=== PATIENT | female | born 1990 | race Caucasian/White ===

== ENCOUNTER 2024-03-22 15:53 | Emergency (ER) | payer OTHER, SELFPAY ==
[2024-03-22 16:22] VITALS: BP 105/69; PULSE 85; RESP 15; TEMP 36.7; O2SAT 99; BMI 19.9
--- NOTE | 2024-03-22 16:28 | DI.RAD.S_ITS ---
PROCEDURE: XR ANKLE RT MIN 3V INDICATIONS: fall.injury TECHNIQUE: 3 views of the ankle were acquired. COMPARISON: None. FINDINGS: Bones: No fractures or dislocations. Ankle mortise is normally aligned. No suspicious bony lesions. Soft tissues: Mild lateral ankle soft tissue swelling is seen. No tibiotalar joint effusion. Achilles tendon appears normal. IMPRESSION: Lateral ankle soft tissue swelling. No acute ankle fracture or dislocation. Ankle mortise is congruent. Dictated by: Charles Marcus M.D. on 03/22/2024 at 17:15 Approved by: Charles Marcus M.D. on 03/22/2024 at 17:16
[2024-03-22 17:51] VITALS: PULSE 85
--- NOTE | 2024-03-22 17:58 | ED_ITS ---
HPI - Extremity Injury (Lower) <Oly Biswas PA-C - Last Filed: 03/22/24 18:28> General Chief Complaint: Extremity Injury, Lower Stated Complaint: Fall, ankle px Time Seen by Provider: 03/22/24 17:49 Source: patient Mode of arrival: Family Vehicle History of Present Illness HPI Narrative: 34-year-old female presents today with right ankle pain, she was working on her boat ?walked a narrow wobbly plank and rolled her ankle she describes an inversion injury. She is complaining of pain and swelling to the lateral right ankle. She is denying any numbness or tingling or weakness. She has no prior ankle injuries that she is aware of no treatment tried prior to arrival although we did ice her in triage. All other systems are reviewed and are negative. 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 Related Data Allergies Allergy/AdvReac Type Severity Reaction Status Date / Time No Known Drug Allergies Allergy Verified 03/22/24 16:28 Review of Systems <Oly Biswas PA-C - Last Filed: 03/22/24 18:28> Review of Systems Narrative: All other systems reviewed and are negative. Patient History <Oly Biswas PA-C - Last Filed: 03/22/24 18:28> Social History Smoking Status: Never smoker Smoking Status: Never smoker alcohol intake frequency: 0-2 drinks per day Substance Use Type: does not use Exam <Oly Biswas PA-C - Last Filed: 03/22/24 18:28> Initial Vital Signs Initial Vital Signs: Vital Signs Temperature 98.0 F 03/22/24 16:22 Pulse Rate 85 03/22/24 16:22 Respiratory Rate 15 03/22/24 16:22 Blood Pressure 105/69 03/22/24 16:22 Pulse Oximetry 99 03/22/24 16:22 Oxygen Delivery Method Room Air 03/22/24 16:22 Const Other: Smiling seated, no distress, athletic appearing. Skin Other: Skin is intact, there is purple discoloration and soft tissue swelling over the lateral malleolus on the right side. Normal turgor, temperature, color otherwise. Extrem Other: Lateral malleolus swelling on the right ankle, purple discoloration inferiorly. Skin is intact. Active range of motion she is able to demonstrate flexion and extension against resistance without pain, inversion causes the most pain but she is without guarding. Eversion not performed. Anterior drawer is negative for any laxity. She has good distal neurovascular including DP and PT pulses normal capillary refill, sensory is grossly intact to all of her distal phalanges. Weightbear she does walk gingerly but is safe and is able to apply full weightbear. She has no superior discomfort in the upper lower leg or knee joint. No other injuries identified. No focal neurologic findings. <Holley Dixon MD - Last Filed: 04/13/24 04:18> Initial Vital Signs Initial Vital Signs: Vital Signs Temperature 98.0 F 03/22/24 16:22 Pulse Rate 85 03/22/24 16:22 Respiratory Rate 15 03/22/24 16:22 Blood Pressure 105/69 03/22/24 16:22 Pulse Oximetry 99 03/22/24 16:22 Oxygen Delivery Method Room Air 03/22/24 16:22 Course <Oly Biswas PA-C - Last Filed: 03/22/24 18:28> Course Course Narrative: Negative x-rays, a 4 in Rodolfo wrap was applied and she feels comfortable. Orders Ordered: ED Orders 03/22/24 16:28 XR ankle RT min 3V Stat Vital Signs Vital signs: Vital Signs - 8 hr 03/22/24 16:22 03/22/24 17:51 Temperature 98.0 F Pulse Rate 85 Pulse Rate [Right Dorsalis Pedis] 85 Respiratory Rate 15 Blood Pressure 105/69 Pulse Oximetry 99 Oxygen Delivery Method Room Air <Holley Dixon MD - Last Filed: 04/13/24 04:18> Orders Ordered: ED Orders 03/22/24 16:28 XR ankle RT min 3V Stat Vital Signs Vital signs: Vital Signs - 8 hr 03/22/24 16:22 03/22/24 17:51 Temperature 98.0 F Pulse Rate 85 Pulse Rate [Right Dorsalis Pedis] 85 Respiratory Rate 15 Blood Pressure 105/69 Pulse Oximetry 99 Oxygen Delivery Method Room Air MDM - Extremity Injury (Lower) <Oly Biswas PA-C - Last Filed: 08/28/24 18:28> Imaging Data Extremity x-ray #1: My Impression: No fracture or dislocation. Lateral ankle soft tissue swelling. Radiologist's Impression: PROCEDURE: XR ANKLE RT MIN 3V INDICATIONS: fall.injury TECHNIQUE: 3 views of the ankle were acquired. COMPARISON: None. FINDINGS: Bones: No fractures or dislocations. Ankle mortise is normally aligned. No suspicious bony lesions. Soft tissues: Mild lateral ankle soft tissue swelling is seen. No tibiotalar joint effusion. Achilles tendon appears normal. IMPRESSION: Lateral ankle soft tissue swelling. No acute ankle fracture or dislocation. Ankle mortise is congruent. Dictated by: Charles Marcus M.D. on 03/22/2024 at 17:15 Approved by: Charles Marcus M.D. on 03/22/2024 at 17:16 [facility] Narrative Medical decision making narrative: Most likely ligamentous sprain, differential includes a partial tear. There is no laxity on examination but significant swelling on the lateral malleolus with purple discoloration. No fracture on radiographs, she is able to weightbear gingerly she is road tested and is safe. She declined any splinting such as an Aircast or walking boot. We discussed red flag warning signs, the nature of ankle sprains and that she should avoid re-injury within the next 6 months, she will return to work as she requested to do so, but we did discuss the risks benefit as well as the potential for re-injury or having a secondary injury. She will wear a high ankle mid lower leg lace-up boot for protection. She understands the risks by returning to work. Red flag warning signs reviewed in detail. She will continue icing and elevating to minimize swelling or pain. Discharge Plan Departure Patient Disposition: Home Clinical Impression: Ankle sprain and strain Instructions: DI for Ankle Sprain Activity Restrictions/Additional Instructions: No fracture on your x-rays today, but you do have a pretty decent ankle sprain. The mcconnell is to not do it again in the next 6 months or it will be at higher risk for laxity and pain. Please keep it elevated, ice regularly you may use the ice pack we gave you, consider an ankle splint available at the local sporting goods store such as a lace-up ankle splint made of leather or neoprene. Rodolfo wrap has been applied today but this is quite cumbersome, I highly recommend you wear a much higher lace-up boot while on the boat for protection rather than your ankle boot today. Tylenol or ibuprofen as needed for pain, follow up with your primary care provider if you have persistent symptoms sometimes physical therapy and ankle strengthening is helpful. Referrals: Miscellaneous,Doctor, [Primary Care Provider] - Stand Alone Forms: Patient Portal/API ED Sign-out <Holley Dixon MD - Last Filed: 04/13/24 04:18> Cosign ED Attending Cosignature Attestation: I was immediately available in the department for consultation throughout this patient's visit. Holley Dixon MD
[2024-03-22 18:08] VITALS: BP 97/50; PULSE 67; RESP 16; O2SAT 100
== END 2024-03-22 18:09 | disposition home or self-care (01) ==
PROVIDERS: Emergency Provider Physician Assistant Medical
DX: S93.401A Sprain of unspecified ligament of right ankle, initial encounter (principal); S96.911A Strain of unspecified muscle and tendon at ankle and foot level, right foot, initial encounter; X50.1XXA Overexertion from prolonged static or awkward postures, initial encounter
CPT/HCPCS: 73610; 99283